=== PATIENT | male | born 1975 | race Native Hawaiian/Other Pacific Islander ===

== ENCOUNTER 2017-11-20 12:04 | Emergency (ER) | payer BC ==
--- NOTE | 2017-11-20 17:09 | Emergency Department Report ---
- General Chief Complaint: Headache Stated Complaint: FLU LIKE SYMPTOMS Time Seen by Provider: 11/20/17 16:59 Source: patient Mode of arrival: Ambulatory Limitations: No Limitations - History of Present Illness Initial Comments: 42-year-old male comes in for complaint of fever headache cough chest condition age and congestion since Monday. Patient reports that he's been taking Advil and Motrin. He has not tried any cough medication. His no primary care provider. Past medical history diabetic on no meds just diet control. Patient reports that he has been drinking a lot and urinating a lot. His weight is down from 352 now 317. He does not check his glucose at home. He takes no medications for his diabetes. MD Complaint: fever, cough, nasal congestion -: days(s) (4) Consistency: constant Improves With: NSAID Associated Symptoms: fever, headache, nasal congestion, cough, shortness of breath - Related Data Previous Rx's Medication Instructions Recorded Last Taken Type Amoxicillin/K Clav Tab [Augmentin 1 tab PO Q12HR #20 tab 11/20/17 Unknown Rx 875 mg] methylPREDNISolone [Medrol] 4 mg PO QDAY #1 tab.ds.pk 11/20/17 Unknown Rx Allergies Allergy/AdvReac Type Severity Reaction Status Date / Time No Known Allergies Allergy Unverified 11/20/17 12:32 ED Review of Systems ROS: Stated complaint: FLU LIKE SYMPTOMS Other details as noted in HPI Constitutional: fever ENT: congestion Respiratory: cough, shortness of breath Endocrine: increased thirst, increased urine Gastrointestinal: denies: abdominal pain, nausea, diarrhea Genitourinary: denies: urgency, dysuria Musculoskeletal: denies: back pain, joint swelling, arthralgia Skin: denies: rash, lesions Neurological: headache Psychiatric: denies: anxiety, depression Hematological/Lymphatic: denies: easy bleeding, easy bruising ED Past Medical Hx - Past Medical History Hx Diabetes: Yes - Social History Smoking Status: Former Smoker - Medications Home Medications: Home Medications Medication Instructions Recorded Confirmed Last Taken Type Amoxicillin/K Clav Tab [Augmentin 1 tab PO Q12HR #20 tab 11/20/17 Unknown Rx 875 mg] methylPREDNISolone [Medrol] 4 mg PO QDAY #1 tab.ds.pk 11/20/17 Unknown Rx ED Physical Exam - General Limitations: No Limitations General appearance: alert, in no apparent distress - Head Head exam: Present: atraumatic, normocephalic - Eye Eye exam: Present: normal appearance - ENT ENT exam: Present: mucous membranes moist - Neck Neck exam: Present: normal inspection - Respiratory Respiratory exam: Present: normal lung sounds bilaterally. Absent: respiratory distress - Cardiovascular Cardiovascular Exam: Present: regular rate, normal rhythm. Absent: systolic murmur, diastolic murmur, rubs, gallop - GI/Abdominal GI/Abdominal exam: Present: soft, normal bowel sounds - Extremities Exam Extremities exam: Present: normal inspection - Neurological Exam Neurological exam: Present: alert, oriented X3 - Psychiatric Psychiatric exam: Present: normal affect, normal mood - Skin Skin exam: Present: warm, dry, intact, normal color. Absent: rash ED Course Vital Signs 11/20/17 11/20/17 12:28 18:41 Temperature 98.5 F Pulse Rate 81 Respiratory 16 18 Rate Blood Pressure 124/80 O2 Sat by Pulse 98 Oximetry ED Medical Decision Making - Medical Decision Making Patient's been evaluated by this provider fast track. Chest x-ray ordered point of care blood glucose water. Patient is afebrile we'll not do any blood work at this time. We will refer patient to a primary care provider for continuing care of his diabetes. Critical care attestation.: If time is entered above; I have spent that time in minutes in the direct care of this critically ill patient, excluding procedure time. ED Disposition Clinical Impression: Viral syndrome, Lung granuloma Disposition: [id number] TO HOME OR SELFCARE Is pt being admited?: No Does the pt Need Aspirin: No Condition: Stable Instructions: Viral Syndrome (ED) Additional Instructions: Please take medication as prescribed. Follow with the primary care provider as well as a cotton sampler. Prescriptions: Amoxicillin/K Clav Tab [Augmentin 875 mg] 1 tab PO Q12HR #20 tab methylPREDNISolone [Medrol] 4 mg PO QDAY #1 tab.ds.pk Referrals: [facility] [Outside] - 3-5 Days [facility] [Provider Group] - 3-5 Days Forms: Work/School Release Form(ED)
[2017-11-20] MEDS ORDERED: MOTRIN PO ONE (17:37)
--- NOTE | 2017-11-20 18:52 | XRay Report ---
FINAL REPORT PROCEDURE: XR CHEST ROUTINE 2V TECHNIQUE: PA and lateral chest radiographs were obtained. CPT 40986 HISTORY: cough subjective fever COMPARISON: No prior studies are available for comparison. FINDINGS: Heart size and pulmonary vasculature appear normal. Lungs are clear with the exception of a small dense nodule in the left lower lobe which appears represent a small calcified granuloma measuring 7 millimeters. No infiltrates are identified. No effusions or pneumothorax visualized. No acute bony abnormalities are visualized. IMPRESSION: Small granuloma suspected lower 3rd left lung. This could be confirmed with CT scan if clinically indicated. No acute abnormalities are identified. No focal infiltrates are seen.
[2017-11-20 19:18] VITALS: BP 141/70
== END 2017-11-20 19:19 | disposition home or self-care (01) ==
LOC: ED 12:04
DX: J84.10 Pulmonary fibrosis, unspecified (principal); B34.9 Viral infection, unspecified; E11.9 Type 2 diabetes mellitus without complications; Z87.891 Personal history of nicotine dependence
CPT/HCPCS: 71046; 82962